=== PATIENT | female | born 1960 | race Caucasian/White ===

== ENCOUNTER 2017-05-21 07:04 | Emergency (ER) | payer OTHER ==
[2017-05-21] MEDS ORDERED: ACETAMINOPHEN 500 MG TABLET PO ONE (07:23)
[2017-05-21] MEDS ORDERED: KETOROLAC TROMETHAMINE 30 MG/ML VIAL IM ONE (07:23)
[2017-05-21] MEDS ORDERED: KETOROLAC TROMETHAMINE 30 MG/ML VIAL ONE (07:25)
--- NOTE | 2017-05-21 07:36 | ERNOTE ---
<Carmelo Pedroza - Last Filed: 05/21/17 07:58> Back Pain ER HPI Date of Service: 05/21/17 Presenting Symptoms: other Time Seen by Provider: 05/21/17 07:40 Source: patient Exam Limitations: no limitations Immunizations: IMMUNIZATION HX Immunizations Up to Date Yes History of Influenza Vaccine Yes Hx Pneumococcal Vaccination No Allergies/Adverse Reactions: Allergies No Known Allergies Allergy (Unverified 05/21/17 07:15) Home Medications: HOME MEDICATIONS Lisinopril [Zestril] 30 mg PO DAILY 05/21/17 [Last Taken Unknown] Rosuvastatin Calcium [Crestor] 40 mg PO DAILY 05/21/17 [Last Taken Unknown] metFORMIN HCL [Glucophage] 500 mg PO BID 05/21/17 [Last Taken Unknown] Narrative: 56 year old that has been having lower back pain for one month. The pain is sharp and has increased over the last 48 hours. She is unsure is playing with her grandson has aggravated the pain? Yesterday took two Alleve tablets without relief. No pain medication was taken today prior to coming to the ED. No complaints of fevers, chills, lower extremity weakness/numbness, or dysuria/ frequency. There is a concern for multiple myeloma, but thus far the workup have not confirmed it. Date (Duration): 05/21/17 Time (Timing): 07:34 Timing: Reports: constant Quality/Severity: Reports: severe, sharpness Location of pain: Reports: lower back Activities at Onset: Reports: none Recent Injury?: Reports: no Possible Precipitating Factor: Reports: none Modifying Factors - (Improves): Reports: nothing Modifying Factors - (Worsens): Reports: other - movement Associated Symptoms: Reports: difficulty walking. Denies: problems urinating, lightheadedness, numbess/weakness in legs Review of Systems - Review of Systems Constitutional: Present: no symptoms reported EYE: Present: no symptoms reported ENT: Present: no symptoms reported Respiratory: Present: no symptoms reported Cardiology: Present: no symptoms reported Gastrointestinal/Abdominal: Present: See HPI Genitourinary: Present: no symptoms reported Musculoskeletal: Present: See HPI Skin: Present: no symptoms reported Neurological: Present: no symptoms reported Endocrine: Present: no symptoms reported Hematologic/Lymphatic: Present: no symptoms reported Psych: Present: no symptoms reported - Patient's Past Medical History Patient History - Medical: No pertinent hx, Other Patient History - Cardiac/Respiratory: Hypertension, Hyperlipidemia Patient History - Cancer: No Hx of Cancer, Other Patient History - Surgical Procedures: Patient History - Other: None - Social History Living Situations: spouse Abuse History: No History of abuse Psych History: No pertinent hx Smoking Status: Current every day smoker Have you smoked in the past 12 months: Yes Do you dip or chew tobacco: No Alcohol Use: none Drug Use: none - Immunizations Immunizations Up to Date: Yes Hx Pneumococcal Vaccination: No History of Influenza Vaccine: Yes Physical Exam - Physical Exam Narrative: Moving very stiffly; not able to lie supine. General Appearance: Present: mild distress Head Exam: Present: normal inspection Eye Exam: Normal inspection: bilateral, PERRL: bilateral Ears, Nose, Throat: Present: normal ENT inspection Neck: Present: normal inspection Respiratory: Present: no respiratory distress Cardiovascular/Chest: Present: regular rate, rhythm, no murmur Gastrointestinal/Abdominal: Present: nontender Back Exam: Present: normal inspection, decreased range of motion - due to pain; Extremity Exam: Present: normal inspection Neurological Exam: Present: alert, oriented, normal mood/affect, decorative greens cutter II-XII nml as tested Skin Exam: Present: normal color ED Progress - Vital Signs Vital Signs: Vital Signs 05/21/17 07:10 Temperature 35.6 C L Pulse Rate 100 Respiratory 18 Rate Blood Pressure 160/108 O2 Sat by Pulse 96 Oximetry - Progress/Reassessment Chief Complaint: Back Pain Progress Note-Subjective: 05/21/17 07:59 Given Ketorlac 30 mg IM Tylenol 1 gram po. - Transfer of Care Physician Sign Out: Carmelo Pedroza Receiving Physician: Bernice Barton Expected Disposition: Discharge Departure Clinical Impression: Lytic lesion of bone on x-ray - Departure Disposition: Home self-care Condition: Good Referrals: Clemencia Mcelroy MD [Primary Care Provider] - Disposition: Home self-care Condition: Fair Referrals: Clemencia Mcelroy MD [Primary Care Provider] - Complete Home Medications List: Complete Home Medication List: Lisinopril [Zestril] 30 mg PO DAILY 05/21/17 Rosuvastatin Calcium [Crestor] 40 mg PO DAILY 05/21/17 metFORMIN HCL [Glucophage] 500 mg PO BID 05/21/17 <Bernice Barton - Last Filed: 05/21/17 09:36> Back Pain ER HPI Immunizations: IMMUNIZATION HX Immunizations Up to Date Yes History of Influenza Vaccine Yes Hx Pneumococcal Vaccination No ED Progress - Vital Signs Vital Signs: Vital Signs 05/21/17 07:10 Temperature 35.6 C L Pulse Rate 100 Respiratory 18 Rate Blood Pressure 160/108 O2 Sat by Pulse 96 Oximetry (1) Lytic bone lesions on xray Problem: Acute (2) Back pain Diagnosis(s): pathologic spinal fractures Problem: Acute Qualifiers: Back pain location: low back pain Chronicity: chronic Back pain laterality: bilateral Procedures Performed: none - Ct scan shows multiple lesions in the lumbar spine. Bowel appears to be normal Discharge Disposition: Home self care Discharge Activity: Activity as tolerated
[2017-05-21 07:39] LABS: Hematocrit 38.3 % (37.0-47.0); Hemoglobin 12.3 gm/dL (12.5-16.0); Mean Cell Volume 90.8 fl (78-100); Mean Corpuscular Hemoglobin 29.1 pg (27-31); Mean Corpuscular Hgb Conc 32.1 g/dl (32-36); Mean Platelet Volume 9.5 fl (6.0-9.5); Neutrophil # 6.1 K/mm3 (1.3-6.0); Neutrophil % 73.9 % (42-75.0); Platelet Count 371 K/mm3 (150-450); Red Blood Count 4.22 M/mm3 (4.2-5.4); Red Cell Distribution Width 14.6 % (11.5-14.0); White Blood Count 8.2 K/mm3 (4.0-10.5)
[2017-05-21 07:45] LABS: Anion Gap 11.7 mmol/L (6.8-13.8); BUN/Creatinine Ratio 23.2 (9.0-21.6); Calcium * 9.4 mg/dL (7.9-10.9); Carbon Dioxide 23.7 mmol/L (24-32.6); Estimated Creat Clear 66.2; Potassium 4.4 mmol/L (3.4-4.6)
[2017-05-21] MEDS ORDERED: MORPHINE SULFATE 4 MG/ML SYRG IV ONE (09:48)
[2017-05-21] MEDS ORDERED: MORPHINE SULFATE 4 MG/ML SYRG ONE (09:49)
[2017-05-21] MEDS ORDERED: ONDANSETRON HCL 8 MG TABLET PO ONE (09:49)
[2017-05-21] MEDS ORDERED: ONDANSETRON 4 MG TAB.RAPDIS ONE (09:49)
[2017-05-21] MEDS ORDERED: ONDANSETRON 4 MG TAB.RAPDIS PO ONE (09:55)
[2017-05-21 11:05] VITALS: BP 135/91
== END 2017-05-21 09:41 | disposition home or self-care (01) ==
LOC: ER 07:04
DX: M89.9 Disorder of bone, unspecified (principal); M84.48XA Pathological fracture, other site, initial encounter for fracture; I10 Essential (primary) hypertension; E78.5 Hyperlipidemia, unspecified; F17.200 Nicotine dependence, unspecified, uncomplicated